=== PATIENT | male | born 1970 | race Caucasian/White ===

== ENCOUNTER 2020-10-13 02:36 | Inpatient (IN) | payer OTHER ==
[~2020-10-13] VITALS: Ht 172.7 cm; Wt 90.7 kg
[~2020-10-13 02:36] MED LIST: ACETAMINOPHEN325 M1 PO; ANTABUSE500 MG PO; ASPIRIN325 PO; CARVEDILOL3.125 MG PO; COUMADIN 5 MG TA5 M1 PO; COUMADIN 5 MG TA5 MG PO; COUMADIN7.5 MG PO; HYDROCODON-ACE1 EAC7 PO; LIBRIUM10 MG PO; LORAZEPAM 1 MG T1 MG PO; MULTIVITAMINS PO; NORCO 5-325 TA1 EACH PO; TRAMADOL 50 MG50 MG PO; ULTRAM 50MG TAB50 MG PO; ZESTRIL
[2020-10-13 02:40] VITALS: BP 140/87; BP 152/80
[2020-10-13] MEDS ORDERED: APAP650 PO (12:25)
[2020-10-13] MEDS ORDERED: ALPRAZOLAM 0.0.25 M1 PO (12:26)
[2020-10-13] MEDS ORDERED: LIPITOR 20 MG T20 M1 PO (12:26)
[2020-10-13] MEDS ORDERED: BISACODYL10 MG RECTAL (12:27)
[2020-10-13] MEDS ORDERED: CORRECTOL5 M1 PO (12:39)
[2020-10-13 14:00] VITALS: BP 143/58
[2020-10-13] MEDS ORDERED: DIVALPROEX SOD250 MG PO (15:22)
[2020-10-13] MEDS ORDERED: VOLTAREN GEL 1100 G1 TOP (15:22)
[2020-10-13] MEDS ORDERED: COLACE100 MG PO (15:25)
[2020-10-13 19:30] LABS: ABSOLUTE NEUTROPHILS 3.9 thou/uL (1.4-8.2); BASOPHILS 0.9 % (0.0-2.0); EOSINOPHILS 1.6 % (0.0-3.0); HEMATOCRIT 40.6 % (42.0-52.0); HEMOGLOBIN 13.6 gm/dL (14.0-18.0); LYMPHOCYTES 23.3 % (24.0-44.0); MCH 30.4 pg (26.0-34.0); MCHC 33.4 g/dL (28.0-37.0); MONOCYTES 9.9 % (1.0-8.0); PLATELET COUNT 209 thou/uL (150-400); POLYS 64.3 % (36.0-66.0); RBC 4.47 mil/uL (4.50-6.00); RDW 14.2 % (10.5-14.5); WBC 6.1 thou/uL (4.0-11.0)
[2020-10-13 19:42] LABS: CALCIUM 8.8 mg/dL (8.5-10.1); POTASSIUM 3.6 mmol/L (3.5-5.1)
[2020-10-13 19:49] LABS: ALBUMIN 3.5 g/dL (3.4-5.0); TOTAL BILIRUBIN 0.8 mg/dL (0.2-1.0); TOTAL PROTEIN 6.3 g/dL (6.4-8.2)
[2020-10-13] MEDS ORDERED: LOVENOX100 MG/1 M SUBQ (20:52)
[2020-10-13] MEDS ORDERED: VANACOF DM LIQ240 ML PO (20:53)
[2020-10-13] MEDS ORDERED: FUROSEMIDE 20 M20 MG PO (20:53)
[2020-10-13] MEDS ORDERED: HYDROXYZINE HCL10 M2 PO (20:56)
[2020-10-13] MEDS ORDERED: MAALOX ADVANCE355 M1 PO (20:58)
[2020-10-13] MEDS ORDERED: MELATONIN3 M1 PO (20:58)
[2020-10-13] MEDS ORDERED: PROTONIX40 M2 PO (21:00)
[2020-10-13 21:17] LABS: INR 1.2; PROTIME 11.8 Seconds (9.3-11.4)
[2020-10-13 21:28] LABS: URINE BILIRUBIN NEGATIVE (Negative); URINE BLOOD NEGATIVE (Negative); URINE CLARITY CLEAR; URINE COLOR YELLOW; URINE GLUCOSE-RANDOM* NEGATIVE (Negative); URINE KETONES NEGATIVE (Negative); URINE LEUKOCYTES-REFLEX NEGATIVE (Negative); URINE NITRITE-REFLEX NEGATIVE (Negative); URINE PROTEIN (DIPSTICK) NEGATIVE (Negative); URINE SPECIFIC GRAVITY 1.025 (1.005-1.035)
[2020-10-13] MEDS ORDERED: SERTRALINE HCL100 MG PO (21:53)
[2020-10-13] MEDS ORDERED: JANTOVEN3 MG PO (21:53)
[2020-10-13] MEDS ORDERED: TRAMADOL 50 MG50 MG PO (21:53)
[2020-10-14 06:25] VITALS: BP 125/75
[2020-10-14 08:30] VITALS: BP 119/71
--- NOTE | 2020-10-14 15:58 | NUR ---
PT ADMITTED RELATED TO AGRESSIVE BAHAVIOR, PRIOR CVA, HX OF EXP APHASIA. CM REVIEWED CHART AND SPOKE WITH CARE TEAM. CM MET WITH PT AT BEDSIDE THIS DAY. PT IS EXTEREMLY APHASIC. PT CONFIRMED THAT HE HAD BEEN AT [facility] PRIOR TO ADMISSION. PT DID STATE "NEVER AGAIN". PT INDICATED THAT LISTED SPOKES PERSON SCOTT (CHIDI) "". HE STATED THAT BRITNI ANDRE IS A GOOD CONTACT BUT COULDN'T PROVIDE INFO ON RELATIONSHIP TO HIM. CM SPOKE WITH LIAISON AT [facility] AND SHE INDICATED THAT PT DOESN'T HAVBE A DPOA ON FILE THERE THAT PT HAD BEEN MAKING HIS OWN DECISIONS AT THE COMMUNITY. CM CALLED AND LEFT A VM FOR BRITNI ANDRE. CM TO DETERMINE PLACEMENT NEEDS. CM TO FOLLOW INDICATED WITH DC PLANNING.
[2020-10-14 16:25] VITALS: BP 106/70
--- NOTE | 2020-10-14 18:55 | NUR ---
Alert and cooperative; patient refused to answer the questions about his orientation assessment. Complains of pain in left hip, pain medication given and worked. no n/v. no chest pain or short of breathing.
[2020-10-14 20:10] VITALS: BP 113/69
--- NOTE | 2020-10-15 01:28 | NUR ---
ASSUMED PT CARE AT SHIFT CHANGE FROM EMILY (DAY RN). PT HAS A PATENT IV IN HIS LEFT HAND SALINE LOCKED. PT HAS EXPRESSIVE APHAGIA. WHEN TALKING TO HIM HE COUNTS ON HIS FINGERS TO COMMUNICATE. PT IS A SBA BUT IS NON COMPLIANT WITH THE FALL PRECAUTIONS. PT SET THE BED ALARM OFF MULTILE TIMES AND SAID TURN IT OFF. PT WALKS WITH A CANE WHEN GOING TO THE . PT GETS FRUSTRATED WHEN I DID NOT UNDERSTAND THAT HE WANTED FENTANYL. PT IS SLEEPING IN HIS ROOM IN HIS CHAIR. HOURLY ROUNDING DONE ON PT. WILL CONTINUE TO MONITOR PT.
[2020-10-15 04:59] VITALS: BP 104/68
[2020-10-15 06:05] LABS: HEMATOCRIT 40.8 % (42.0-52.0); HEMOGLOBIN 13.5 gm/dL (14.0-18.0); MCH 30.3 pg (26.0-34.0); MCV 91.7 fL (80.0-100.0); RBC 4.45 mil/uL (4.50-6.00); RDW 14.2 % (10.5-14.5); WBC 5.1 thou/uL (4.0-11.0)
[2020-10-15 06:16] LABS: CALCIUM 8.9 mg/dL (8.5-10.1); POTASSIUM 4.1 mmol/L (3.5-5.1)
[2020-10-15 07:10] VITALS: BP 110/66
--- NOTE | 2020-10-15 10:51 | NUR ---
assumed care at 0700.ax o 4. iv is on left ac and shows no signs of redness or swelling. pt denies pain at this time. pt was told to use call light when moving around. pt states that he understood. fall precaution. call light within reach. will continue to monitor.
[2020-10-15 16:15] VITALS: BP 121/74
[2020-10-15 21:03] VITALS: BP 106/65
--- NOTE | 2020-10-16 04:09 | NUR ---
ASSESSED AT START OF SHIFT. PT UP ADLIB IN THE ROOM AND HALLWAY. FALL EDUCATION PROVIDED. PT C/O PAIN PO AND IV PAIN MEDS GIVEN. PT RESTLESS ASKED FOR ANXIETY MED. EVENING MEDS GIVEN AND APPLE SAUCE PROVIDED. CALL LIGHT AT REACH WILL CONT TO MONITIOR.
[2020-10-16 07:40] VITALS: BP 97/55
--- NOTE | 2020-10-16 10:17 | NUR ---
CM MET WITH PT AT BEDSIDE YESTERDAY AND PROVIDED LIST FOR PT TO SEE WHERE ELSE HE MIGHT BE INTERESTED IN GOING FOR REHAB. CM ASKED THAT AT LEAST ST BE ORDERED AND PT HAS DEFICITS AND APPEARS TO BE UP AD SARAH IN ROOM. CM FOLLOWED UP WITH PT AND HE INDICATED THAT HE WANTED REFERRAL SENT TO [facility]. CM INDICATED THAT MOST UNFORTUNATLY THEY AREN'T TAKING NEW ADMISSIONS DUE TO COVID. PT WAS CURSING. CM FOLLOWD UP WITH PT AND HE ATTEMPTED TO CONTACT [facility] ON HIS ROOM PHONE. CM INDICATED THAT CM HAD ATTEMPTED TO CALL HER DAILY WITH NO RESPONSE YET. HE STATED HE WANTED TO LOOK INTO ASSISTED LIVING. CM TO FOLLOW INDICATED WITH DC PLANNING.
[2020-10-16 16:30] VITALS: BP 118/76
--- NOTE | 2020-10-16 18:19 | NUR ---
PT CARE ASSUMED AT 0700. A&Ox4. PAIN CONTROLLED WELL WITH PAIN MEDICATION ON BOARD. PT WILL TELL YOU WHICH MEDICATIONS HE WANTS CRUSHED WITH APPLESAUCE. IV PATENT WITH NO REDNESS OR EDEMA, SALINE LOCKED. XANAX GIVEN ONCE. CALL LIGHT IN REACH. WILL CONTINUE TO MONITOR.
[2020-10-16 20:04] VITALS: BP 103/65
--- NOTE | 2020-10-17 05:17 | NUR ---
ASSESSED AT START OF SHIFT. PT C/O PAIN. IV PAIN MEDS GIVEN. PT UP AD SARAH. NIGHT TIME MEDS PROVIDED. PT SLEPT THROUGH THE SHIFT. CALL LIGHT AT REACH. NO FURTHER SIGNS OF DISCOMFORT WILL CONT TO MONITOR.
[2020-10-17 07:45] VITALS: BP 130/77
[2020-10-17] MEDS ORDERED: [UNRECOGNIZED DRUG - OTHER] TOP (08:25)
[2020-10-17] MEDS ORDERED: MILK OF MA2400 MG/11 PO (08:26)
[2020-10-17] MEDS ORDERED: ZOFRAN4 MG PO (08:27)
--- NOTE | 2020-10-17 12:34 | NUR ---
PT CARE ASSUMED AT 0700. A&Ox4. PT MEDICALLY STABLE JUST AWAITING PLACEMENT. PREFERS TO TAKE HIS LARGER PILLS CRUSHED WITH APPLESAUCE AND IS FINE TAKING SMALLER PILLS WHOLE. PT WILL BECOME FRUSTRATED WHEN PEOPLE DO NOT UNDERSTAND WHAT HE IS SAYING. PAIN IS MANAGED WELL WITH PAIN MEDICATION ON BOARD.PT REQUESTED XANAX IN THE AM WHEN FIRST AWAKING AND PAIN MEDICATION. IV PATENT WITH NO REDNESS OR EDEMA, DRESSING CHANGED. CALL LIGHT IN REACH. WILL CONTINUE TO MONITOR.
[2020-10-17 15:39] VITALS: BP 109/67
[2020-10-17 19:50] VITALS: BP 109/61
--- NOTE | 2020-10-18 01:26 | NUR ---
ASSUMED PT CARE AT SHIFT CHANGE. PT A&OX4. IV IS IN LEFT AC. PATENT AND NO REDNESS AT THE SITE. PT PREFERS IV PAIN MEDICATION. PT ALSO REFUSED TO TAKE PART OF HIS ORAL MEDICATION. PT IS UP AD SARAH. PT ALSO HAS EXPRESSIVE APHAGIA. HOURLY ROUNDING DONE ON PT. WILL CONTINUE TO MONITOR.
[2020-10-18 08:31] VITALS: BP 111/72
[2020-10-18 08:34] VITALS: BP 132/72
[2020-10-18 19:54] VITALS: BP 95/53
--- NOTE | 2020-10-18 21:14 | NUR ---
PT CARE ASSUMED AT 0700. A&Ox4. PT INSISTING ON HAVING HIS IV MEDICATION FENTANYL SWITCHED TO MORPHINE AND THEN RECEIVE HIS HYDROCODONE CRUSHED WITHIN TEN MINUTES. WHEN EDUCATING THAT PO HAS TO BE TRIED FIRST HE BECAME UPSET BUT DID TAKE IT. DISCUSSED THIS WITH DR. ROCKWELL ABOUT CONCERNS THAT PATIENT MIGHT BE DOING THIS TO GET "HIGH". DR. ROCKWELL DISCONTINUED FENTANYL AND DISCUSSED WITH PATIENT THAT HE CANNOT RECEIVE HIS PAIN MEDICATION CRUSHED. HE EATS ALL HIS FOOD WITHOUT ISSUES AND NO SWALLOW ISSUES. WHEN PT WEAS DUE FOR NEXT DOSE PT TOOK HYDROCODONE AND CHEWED IT. AT 1700 PT STATED THAT HE WOULD LIKE TO LEAVE AND NOT COME BACK. DR. ROCKWELL INFORMED WHICH CONFIRMED THAT WE CANNOT HOLD HIM AGAINST HIS WILL AND THAT IF HE WOULD LIKE TO LEAVE HE NEEDS TO SIGN AMA PAPERS. PT WAS OK WITH THIS UNTIL I TRIED TO REMOVE THE IV. PT THEN CHANGED HIS MIND AND STAYED. REPORT GIVEN TO DARCY GARCIA.
--- NOTE | 2020-10-18 22:46 | NUR ---
ASSUMED PT CARE AT 1900.PT WAS OBSERVED DRESSING UP IN HIS ROOM AFTER SHIFT CHANGE.PT STATED THAT HE WAS GOING OUTSIDE.PT WAS INFORMED THAT HE CAN NOT GO OUTSIED ALONE WITHOUT A STAFF.PT INSISTED THAT HE WAS GOING TO GO OUTSIDE.SECURITY WAS CALLED AND PT DECIDED TO STAY AFTER HE WAS TALKED TO.PT WAS INFORMED THAT HE CAN LEAVE IF HE CHOOSES TO BUT HIS IV ACCESS NEED TO BE TAKEN OUT.PT CURSED AT THIS NURSE WHILE TOOK ALL HIS HS MEDS.PT RESTING ON HIS BED AT THIS TIME.CALL LIGHT WITHIN REACH.
[2020-10-19 08:11] VITALS: BP 109/67
--- NOTE | 2020-10-19 13:11 | NUR ---
Assumed pt carolin this am, vs stable, aphasia is evident, pt gets frustrated when not understood. Pt verbalized her does not want to go back to [place] where he came from d/t poor care and would like to look at other options and talk to the caseworker protective services. Pain is managed with medications, partial relief is verbalizaed though would fall asleep after medication is given. POC followed.
[2020-10-19 16:23] VITALS: BP 129/85
[2020-10-19 19:22] VITALS: BP 107/63
--- NOTE | 2020-10-19 22:33 | NUR ---
PT AOX4, WITH EXPRESSIVE APHASIA. PT EXPRESSES CONCERN UPON SHIFT REPORT WITH DISCHARGING TO A SAFE PLACE. PROVIDED REASSURANCE TO PT THAT CASE MANAGEMENT WILL BE NOTIFIED OF CONCERN. PT REPORTS 6/10 PAIN IN RIGHT HIP. PT RECEIVING PRN PO NORCO Q6HR WITH PRN PO APAP Q6HR AVAILABLE. PT DENIES SOB WHILE ON ROOM AIR. PT REPORTS ANXIETY. PT RECEIVING PRN PO XANAX Q6HR WITH PRN PO VISTARIL TID AVAILABLE. PT TOLERATING PO INTAKE OF FLUIDS AND REGULAR DIET WITHOUT ISSUE. PT DENIES NAUSEA. PT AMBULATING INDEPENDENTLY IN ROOM AND TO BATHROOM WITH CANE, RESTING IN BED OTHERWISE. FREQUENT REPOSITIONING ENCOURAGED WHILE IN BED, PT NOTED TO SHIFT INDEPENDENTLY WHILE IN BED. PT ENCOURAGED TO NOTIFY STAFF FOR ALL NEEDS, CALL LIGHT WITHIN REACH, BED LOCKED IN LOWEST POSITION, FREQUENT MONITORING WILL CONTINUE.
[2020-10-20 04:35] VITALS: BP 110/76
[2020-10-20 07:56] VITALS: BP 101/61
--- NOTE | 2020-10-20 09:17 | NUR ---
Assess due to length of stay. Admit from group facility with hip pain, aggressive behavior. Hx CVA with aphasia. Pt tolerates oral intake well eating >75% meals. ST has determined functional swallow, continue regular diet and thin liquids. No signficant changes in wt. Low nutrition risk
[2020-10-20 10:47] VITALS: BP 101/61
[2020-10-20 10:48] VITALS: BP 101/61
--- NOTE | 2020-10-20 10:52 | NUR ---
PT CARE ASSUMED AT 0700. A&Ox4. PT INSISTING ON BEING DISCHARGE AND IS TIRED OF SITTING AROUND WAITING FOR PLACEMENT. FRONT END MECHANIC INFORMED AND DR. ROCKWELL. PT WILL DISCAHRGE WITH HOMEHEALTH AND MEDICTIONS. IV REMOVED. DISCHARGED WITH NO FURTHER QUESTIONS. CALL LIGHT IN REACH. WILL CONTINUE TO MONITOR UNTIL CAB ARRIVES.
[2020-10-20 11:08] VITALS: BP 101/61
--- NOTE | 2020-10-20 11:18 | NUR ---
Pt left AMA this morning. Lcac Operator spoke with the pt and offered to arrange for home health, referral to [facility] in [facility], fill scripts and cab ride. He said yes but then decided he did not want to wait and he would take the bus. He notes his home address is [address], [place] and it is his intention to return there where he lives with roommates. He is [facility] and up ad rachael in his room. No cm interventions due to AMA discharge.
== END 2020-10-20 11:20 | disposition left against medical advice (07) | DRG 556 ==
LOC: ER 02:36 → EROBS 20:05 → 4S 20:05
PROVIDERS: Emergency Medicine; ADMIT Hospitalist; ATTEND Hospitalist
DX: M25.552 Pain in left hip (principal); R47.01 Aphasia; F91.8 Other conduct disorders; I11.0 Hypertensive heart disease with heart failure; E78.5 Hyperlipidemia, unspecified; Z20.822 Contact with and (suspected) exposure to COVID-19; I50.9 Heart failure, unspecified; Z86.73 Personal history of transient ischemic attack (TIA), and cerebral infarction without residual deficits; Z86.718 Personal history of other venous thrombosis and embolism; Z79.891 Long term (current) use of opiate analgesic; Z79.01 Long term (current) use of anticoagulants; Z79.899 Other long term (current) drug therapy; Z88.5 Allergy status to narcotic agent; Z86.711 Personal history of pulmonary embolism; Z95.2 Presence of prosthetic heart valve
CPT/HCPCS: 10195